=== PATIENT | female | born 1980 | race Caucasian/White ===

== ENCOUNTER 2016-07-08 14:33 | Outpatient (CLI) | payer MEDICARE ==
[~2016-07-08 14:33] MED LIST: ALPRAZOLAM0.5 MG PO; BCP; MOTRIN800 MG PO; PERCOCET 5/31 TABLET PO; TYLENOL WITH C1 EACH
[2016-07-08 15:48] LABS: ADD MIUA? NO; BILIRUBIN NEGATIVE; BLOOD NEGATIVE; COLOR STRAW ((YELLOW)); GLUCOSE (STRIP) NEGATIVE; KETONES NEGATIVE; LEUKOCYTES NEGATIVE; NITRITE NEGATIVE; PROTEIN (STRIP) NEGATIVE; SPECIFIC GRAVITY 1.002 (1.000-1.030); UCUL ADDED? NO; UROBILINOGEN 0.2 MG/DL (0.2-1.0)
[2016-07-08 16:38] VITALS: BP 130/77
[2016-07-08 17:48] VITALS: BP 131/79
[2016-07-08 19:27] VITALS: BP 130/70
[2016-07-08 22:14] VITALS: BP 106/56
[2016-07-09 03:32] VITALS: BP 117/63
[2016-07-09 07:47] VITALS: BP 122/59
== END 2016-07-09 10:40 | disposition home or self-care (01) ==
LOC: LDRP-OP 14:33 → 2WEST 14:34 → LDRP-OP 10-25 14:19
PROVIDERS: Nurse Practitioner
DX: O47.02 False labor before 37 completed weeks of gestation, second trimester (principal); Z3A.28 28 weeks gestation of pregnancy; O09.522 Supervision of elderly multigravida, second trimester
CPT/HCPCS: 59025; 76815; 81003; 82731; G0378

== ENCOUNTER 2016-09-24 17:16 | Outpatient (CLI) | payer MEDICARE ==
[~2016-09-24] VITALS: Ht 170.2 cm; Wt 81.2 kg
[2016-09-24] VITALS (7 sets, daily range): BP systolic 131–142; BP diastolic 83–88
[2016-09-24 17:47] LABS: EOSINOPHIL (%) 0.3 % (0-5); HEMATOCRIT 36.8 % (36.0-46.0); IMMATURE GRANULOCYTE (%) 0.8 % (0.0-0.7); IMMATURE GRANULOCYTE COUNT 0.1 K/uL; INSTRUMENT ABS NEUTROPHIL CT 9.4 K/uL; LYMPHOCYTE COUNT 1.8 K/uL (1.0-2.8); MCH 28.3 PG (29.0-34.0); MCHC 33.7 G/DL (30.0-36.0); MEAN PLAT.VOLUME 12.6 uM^3 (9.5-12.4); MONOCYTE (%) 5.8 % (3-12); MONOCYTE COUNT 0.7 K/uL (0-0.8); NEUTROPHIL (%) 77.8 % (45-76); NEUTROPHIL COUNT 9.4 K/uL (1.8-6.4); PLATELET COUNT 162 K/uL (156-360); RBC DIS.WIDTH-CV 13.3 % (11.8-14.6); RBC DIS.WIDTH-SD 41.1 % (39-53); RED BLOOD COUNT 4.38 M/uL (3.80-5.20); WHITE BLOOD COUNT 12.1 K/uL (4.1-10.2)
[2016-09-24 18:18] LABS: ALKALINE PHOSPHATASE 118 IU/L (3-129); ANION GAP 11 MEQ/L (2-14); CHLORIDE 105 MEQ/L (99-109); GFR ESTIMATE (CALCULATED) > 59 mL/min/; GLUCOSE 86 mg/dL (70-99); POTASSIUM 3.5 MEQ/L (3.7-5.4); SAMPLE HEMOLYSIS CHECK 0; SAMPLE ICTERIC CHECK 0; SAMPLE LIPEMIA CHECK 0; SODIUM 135 MEQ/L (136-147); TOTAL BILIRUBIN 0.3 MG/DL (0.0-1.0); UREA NITROGEN (BUN) 9 mg/dL (9-23)
[2016-09-24] MEDS ORDERED: PROCTOFOAM15 GM TP (18:36)
[2016-09-24 18:55] LABS: UR CREATININE CONCENTRATION 75.8 MG/DL
== END 2016-09-24 19:35 | disposition home or self-care (01) ==
LOC: LDRP-OP 17:16 → 2WEST 17:17 → LDRP-OP 10-25 05:39
PROVIDERS: Nurse Practitioner
DX: O13.3 Gestational [pregnancy-induced] hypertension without significant proteinuria, third trimester (principal); Z3A.40 40 weeks gestation of pregnancy
CPT/HCPCS: 59025; 80053; 82570; 84156; 85025; G0378

== ENCOUNTER 2016-09-29 17:02 | Inpatient (IN) | payer MEDICARE ==
[2016-09-29] VITALS (9 sets, daily range): BP systolic 136–178; BP diastolic 70–101
[~2016-09-29] VITALS: Ht 170.2 cm; Wt 81.1 kg
[~2016-09-29 17:02] MED LIST changes: +PROCTOFOAM15 GM TP
[2016-09-29 18:36] LABS: ANION GAP 10 MEQ/L (2-14); CHLORIDE 103 MEQ/L (99-109); SAMPLE HEMOLYSIS CHECK 0; SAMPLE ICTERIC CHECK 0; SAMPLE LIPEMIA CHECK 0; SODIUM 134 MEQ/L (136-147); TOTAL BILIRUBIN 0.3 MG/DL (0.0-1.0)
[2016-09-29 18:43] LABS: ALKALINE PHOSPHATASE 119 IU/L (3-129); GFR ESTIMATE (CALCULATED) > 59 mL/min/; GLUCOSE 77 mg/dL (70-99); UREA NITROGEN (BUN) 10 mg/dL (9-23)
[2016-09-29 19:18] LABS: EOSINOPHIL (%) 0.4 % (0-5); EOSINOPHIL COUNT 0.1 K/uL (0-0.3); IMMATURE GRANULOCYTE (%) 0.8 % (0.0-0.7); IMMATURE GRANULOCYTE COUNT 0.1 K/uL; LYMPHOCYTE COUNT 1.8 K/uL (1.0-2.8); MCH 28.4 PG (29.0-34.0); MCHC 33.9 G/DL (30.0-36.0); MCV 83.9 FL (83-99); MONOCYTE (%) 7.7 % (3-12); MONOCYTE COUNT 0.9 K/uL (0-0.8); NEUTROPHIL (%) 75.7 % (45-76); PLATELET COUNT 171 K/uL (156-360); RBC DIS.WIDTH-CV 13.5 % (11.8-14.6); RBC DIS.WIDTH-SD 41.5 % (39-53); RED BLOOD COUNT 4.29 M/uL (3.80-5.20); WHITE BLOOD COUNT 11.8 K/uL (4.1-10.2)
[2016-09-30] VITALS (12 sets, daily range): BP systolic 118–166; BP diastolic 61–91
[2016-09-30] MEDS ORDERED: IBUPROFEN800 MG PO (03:40)
[2016-10-01 07:48] VITALS: BP 141/89
== END 2016-10-01 15:08 | disposition home or self-care (01) | DRG 775 ==
LOC: LDRP-OP 17:02 → 2WEST 17:04 → LDRP-OP 10-25 20:57
PROVIDERS: Advanced Practice Midwife
PROC: 3E0R3CZ (ICD-10-PCS; principal; 2016-09-29)
PROC: 00HU33Z Insertion of Infusion Device into Spinal Canal, Percutaneous Approach (ICD-10-PCS; principal; 2016-09-29)
PROC: 10907ZC Drainage of Amniotic Fluid, Therapeutic from Products of Conception, Via Natural or Artificial Opening (ICD-10-PCS; principal; 2016-09-29)
PROC: 10E0XZZ Delivery of Products of Conception, External Approach (ICD-10-PCS; 2016-09-30)
DX: O13.4 Gestational [pregnancy-induced] hypertension without significant proteinuria, complicating childbirth (principal); O48.0 Post-term pregnancy; O99.62 Diseases of the digestive system complicating childbirth; K21.9 Gastro-esophageal reflux disease without esophagitis; Z3A.40 40 weeks gestation of pregnancy; Z37.0 Single live birth; O99.343 Other mental disorders complicating pregnancy, third trimester; F41.9 Anxiety disorder, unspecified
CPT/HCPCS: 80053; 82570; 84156; 85025; C1755; G0378; J3010; J7120